=== PATIENT | male | born 2000 | race Caucasian/White ===

== ENCOUNTER 2023-09-13 14:22 | Outpatient (AMB) | payer BC, MEDICAID, SELFPAY ==
--- NOTE | 2023-09-13 14:38 | A.OFFPC_ITS ---
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 Will order labs. Pt has a hx of autism. He is accompanied by his mother today. Pt reports increased allergy symptoms. Recommended OTC cetirizine twice a day. Pt reports increased anxiety. He is positive on the PHQ-9 and PEGGY-7. He is interested in seeing a therapist. Will have team speak with pt. Denies any SI and HI. Pt has cerumen bilat, recommended ear wax removal kit. [facility] Medical History (Updated 09/13/23 @ 15:32 by Ney Vaca, [facility]) Autism Pervasive developmental disorder Social History Housing: House Patient Tobacco Use Status: Never used Tobacco Current occupational status: unemployed Current occupational exposures/hazards: No Cognitive needs: No Hearing needs: No Vision needs: Yes Questionnaire PHQ-9 Over the last 2 weeks, how often have you been bothered by any of the following problems? 1. Little interest or pleasure in doing things: several days 2. Feeling down, depressed, or hopeless: several days 3. Trouble falling or staying asleep, or sleeping too much: nearly every day 4. Feeling tired or having little energy: not at all 5. Poor appetite or overeating: several days 6. Feeling bad about yourself - or that you are a failure or have let yourself or your family down: several days 7. Trouble concentrating on things, such as reading the newspaper or watching television: more than half the days 8. Moving or speaking so slowly that other people could have noticed. Or the opposite - being so fidgety or restless that you have been moving around a lot more than usual: more than half the days 9. Thoughts that you would be better off or of hurting yourself in some way: not at all Total score: 11 Depression Screening Interpretation: Positive (having pratibha (BH) see pt) Depression Screening Follow-up: Existing condition Depression Screening Done: Yes 72483 - PHQ-9 Billing: Yes Source: Developed by Drs. Bro Henriquez, Jazmin Fairchild, Johnny Beckett and colleagues, with an educational rocío from [employer]. Thrive Questionnaire Date Thrive assessed: 09/13/23 I am a: Patient What is your living situation today?: I have a steady place to live Within the past 12 months, did the food you bought not last and you didn't have the money to get more?: Sometimes True Within the past 12 months, did you worry whether your food would run out before you got money to buy more?: Sometimes True Do you have trouble paying for medicines?: Yes Do you have trouble getting transportation to medical appointments?: No Do you have trouble paying your heating and electricity bill?: Yes Do you have trouble taking care of your child, family member or friend?: No Do you have trouble with day-to-day activities such as bathing, preparing meals, shopping, managing finances, etc.?: No Are you currently unemployed and looking for a job?: Yes Are you interested in more education?: No Please select the resources that you would like help with: Job search/training Currently or been in a relationship where the following occur: No concerns reported THRIVE Score: 3 AUDIT C Alcohol Use Questionnaire (AUDIT-C) 1. How often do you have a drink containing alcohol?: Never 3. How often do you have six or more drinks on one occasion?: Never Total Score: 0 Score Reviewed/Action Taken: No PEGGY-7 AMB Questionnaire PEGGY-7 Date PEGGY - 7 assessed: 09/13/23 Feeling nervous, anxious, or on edge: 1 = Several days Not being able to stop or control worryin = More than half the days Worrying too much about different things: 3 = Nearly every day Trouble relaxin = Several days Being so restless that it is hard to sit still: 3 = Nearly every day Becoming easily annoyed or irritable: 2 = More than half the days Feeling afraid as if something awful might happen: 2 = More than half the days Total PEGGY-7 score (0-4 normal; 5-9 mild; 10-14 moderate; 15-21 severe): 14 Source: Developed by Drs. Bro Henriquez, Jazmin Fairchild, Johnny Beckett and colleagues, with an educational rocío from [employer]. PEGGY-7 Assessment Billing PEGGY-7 Assessment Tool: PEGGY-7 Assessment 27067 Review of Systems Const Denies chills and Denies fever(s) Eyes Denies blurry vision ENT Denies vertigo, Denies dizziness and Denies sore throat Card Denies chest pain at rest, Denies chest pain with activity, Denies diaphoresis, Denies dyspnea and Denies dyspnea on exertion Resp Denies cough, Denies dyspnea, Denies dyspnea on exertion and Denies wheezing GI Denies abdominal pain, Denies melena, Denies hematochezia, Denies constipation, Denies diarrhea and Denies loose stools Denies hematuria Musc Denies numbness and Denies tingling Skin/Breast Denies lesions Neuro Denies vertigo, Denies dizziness, Denies numbness and Denies tingling Psych Denies anxiety, Denies depression, Denies homicidal ideation, Denies suicidal ideation and Denies other (substance abuse) Aller/Immun Denies wheezing Physical exam (Primary Care) Vital Signs: Last Vital Signs Pulse 97 09/13/23 14:39 BP 120/80 09/13/23 14:39 Pulse Ox 97 09/13/23 14:39 Oxygen Delivery Method Room Air 09/13/23 14:39 BMI result Body Mass Index 23.2 Tobacco/Smoking Status: Tobacco use Status Tobacco use date assessed 09/13/23 09/13/23 14:45 Patient Tobacco Use Status Never used Tobacco 09/13/23 14:45 PHQ-9: PHQ-9 Score PHQ-9: Total score 11 09/13/23 14:49 Depression Screening Interpretation: Positive (having pratibha (TOMI) see pt) Depression Screening Follow-up: Existing condition Thrive Assessment: Date of Thrive Assessment Date Thrive assessed 09/13/23 09/13/23 14:49 Currently or been in a relationship where the following occur: No concerns reported Const General: cooperative Nutritional Appearance: well nourished Orientation/consciousness: patient oriented x3 HENMT Other: cerumen noted bilat Head: Yes normal to inspection, Yes normocephalic and Yes atraumatic Eyes General: appearance normal, both eyes and all related structures Alignment and Position: alignment normal and position normal Neck Neck: Yes normal visual inspection and Yes no lymphadenopathy Thyroid: Thyroid normal Resp Effort & Inspection: normal respiratory effort Auscultation: clear to auscultation bilaterally Cardio Rate: regular rate Rhythm: regular rhythm Heart sounds: S1 normal heart sound present, S2 normal heart sound present and no murmurs GI Palpation (GI): Soft to palpation and nontender Auscultation: normal bowel sounds Male General Exam: Yes normal external exam Penis: normal penis Scrotum: scrotum normal, testes descended bilaterally and no inguinal hernias Testes: no testicular mass Skin Rashes: no rashes Neuro General: patient oriented x3, moves all extremities, no focal motor deficits and deep tendon reflexes 2+ bilaterally Romberg Test: Negative Psych Appearance: grossly normal Mental Status: mental status grossly normal Speech and movement: Normal speech and movement present Affect: normal affect Attitude: cooperative Thought process: Normal thought process present Thought content: Normal thought content present Insight: Good insight present (Psych) Judgement: Good judgement present (Psych) Assessment and Plan Assessment & Plan (1) Physical exam: Code(s): Z00.00 - Encounter for general adult medical examination without abnormal findings Plan: Labs ordered (2) Impacted cerumen of both ears: Code(s): H61.23 - Impacted cerumen, bilateral Plan: Recommended ear wax removal kit (3) Multiple allergies: Code(s): Z88.9 - Allergy status to unspecified drugs, medicaments and biological substances Plan: cetirizine 20mg daily (4) Anxiety with depression: Code(s): F41.8 - Other specified anxiety disorders Plan The patient agreed to the use of a biomedical repair technician for this encounter. Scribed for RIGOBERTO Conrad by Mely Rodriguez biomedical repair technician, on 09/13/2023 at 15:00 EST. Orders: Orders TSH reflex Free T4 Today Z00.00 - Encounter for general adult medical examination without abnormal findings Lipid Panel Today Z00.00 - Encounter for general adult medical examination without abnormal findings Complete Blood Count Auto Diff Today Z00.00 - Encounter for general adult medical examination without abnormal findings Comprehensive [place]. Panel Fast Today Z00.00 - Encounter for general adult medical examination without abnormal findings UA CC w/rflx Micro + Cult Today Z00.00 - Encounter for general adult medical examination without abnormal findings Coding Level of Care Code New Pt Level 3 (57781) New Pt Prev Care 18-39yr(29542 Diagnoses Physical exam Z00.00 Impacted cerumen of both ears H61.23 Multiple allergies Z88.9 Anxiety with depression F41.8 Additional Codes PEGGY-7 Assessment Billing - PEGGY-7 Assessment Tool: PEGGY-7 Assessment 49762 ([id number])
[2023-09-13 14:39] VITALS: BP 120/80; PULSE 97; O2SAT 97; BMI 23.2
== END 2023-09-13 17:20 | disposition home or self-care (01) ==
LOC: HO.HMGC 14:22
PROVIDERS: PCP Nurse Practitioner Family; Visit Provider Nurse Practitioner Family
DX: Z00.00 Encounter for general adult medical examination without abnormal findings (principal); H61.23 Impacted cerumen, bilateral; F41.8 Other specified anxiety disorders; Z88.9 Allergy status to unspecified drugs, medicaments and biological substances
CPT/HCPCS: 99203; 99385

== ENCOUNTER 2023-12-20 08:30 | Outpatient (REF) | payer BC, MEDICAID, SELFPAY ==
[2023-12-20 10:14] LABS: MANUAL DIFF FLAG NO
[2023-12-20 10:21] LABS: Basophils Percent Auto 0.7 % (0-2); Eosinophils Absolute Auto 0.2 X10*3/uL (0.0-0.4); Eosinophils Percent Auto 4.3 % (0-4); Hematocrit 47.6 % (42.0-52.0); Hemoglobin 16.6 g/dl (14.0-18.0); Imm Gran Abs Auto 0.01 X10*3/uL (0.00-0.03); Imm Gran Pct Auto 0.2 % (0.0-0.4); Lymphocytes Absolute Auto 2.2 X10*3/uL (1.2-4.9); Lymphocytes Percent Auto 39.4 % (20-40); Mean Corpuscular HGB Conc 34.9 g/dl (31.0-36.0); Mean Corpuscular Hemoglobin 30.4 pg (27.0-33.0); Mean Corpuscular Volume 87.2 fL (80.0-98.0); Mean Platelet Volume 9.5 fL (9.4-12.4); Monocytes Absolute Auto 0.6 X10*3/uL (0.1-1.2); Monocytes Percent Auto 10.8 % (2-11); Neutrophils Absolute Auto 2.5 x10*3/uL (2.0-8.3); Neutrophils Percent Auto 44.6 % (45-73); Platelet Count 261 X10*3/uL (160-400); Red Blood Count 5.46 X10*6/uL (4.60-5.80); Red Cell Distribution Width 12.6 % (11.0-16.0); White Blood Count 5.6 X10*3/uL (4.8-10.8)
[2023-12-20 10:42] LABS: Appearance Urine Clear; Color Urine Dark Yellow; Glucose Urine UA Negative (Negative); Leukocyte Esterase Urine Negative (Negative); Nitrite Urine Negative (Negative); Specific Gravity - Urine >= 1.030 (1.005-1.025); Urine Blood Negative (Negative); Urine Ketones Negative (Negative); Urine Protein Trace mg/dL (Neg-Trace)
[2023-12-20 10:57] LABS: Alanine Aminotransferase 73 U/L (0-40); Albumin Level 4.4 g/dL (3.5-5.0); Alkaline Phosphatase 76 U/L (39-117); Anion Gap 11 (12-20); Aspartate Amino Transferase 34 U/L (5-37); Bilirubin Total 0.7 mg/dL (0.0-1.0); Blood Urea Nitrogen 9 mg/dL (9-16); Calcium 9.5 mg/dL (8.4-10.2); Carbon Dioxide 28 mmol/L (22-29); Chloride 106 mmol/L (96-108); Cholesterol 186 mg/dL (<200); Estimated Glomerular Filt Rate > 60; Glucose Fasting 85 mg/dL (60-99); HDL Cholesterol 39 mg/dL (>40); LDL Cholesterol Calculated 120 mg/dL (<100); Potassium 3.7 mmol/L (3.3-5.1); Sodium 141 mmol/L (135-145); Total Protein 7.3 g/dL (6.5-8.0); Triglycerides 139 mg/dL (<150)
[2023-12-20 11:20] LABS: TSH reflex Free T4 1.93 uIU/mL (0.32-4.0)
== END 2023-12-20 08:31 | disposition home or self-care (01) ==
LOC: HO.HMGCLDS 08:30
PROVIDERS: PCP Nurse Practitioner Family; Visit Provider Nurse Practitioner Family
DX: Z00.00 Encounter for general adult medical examination without abnormal findings (principal)
CPT/HCPCS: 36415; 80053; 80061; 81003; 84443; 85025

== ENCOUNTER 2024-01-04 14:12 | Outpatient (REF) | payer BC, MEDICAID, SELFPAY ==
[2024-01-05 08:29] LABS: HBc Num1 0.12 S/CO (0.00-0.79); HBsAGNum1 0.35 S/CO (0.00-0.99); Hepatitis B Core Antibody Nonreactive (Nonreactive); Hepatitis B Surface Antigen Negative (Negative); ~HepC Num1 0.26 S/CO (0.00-0.79); ~Hepatitis A Antibody IgM Nonreactive (Nonreactive); ~Hepatitis B Surface Antibody NONREACTIVE (Nonreactive); ~Hepatitis C Antibody Nonreactive (Nonreactive)
== END 2024-01-04 14:13 | disposition home or self-care (01) ==
LOC: HO.US 14:12
PROVIDERS: PCP Nurse Practitioner Family; Visit Provider Nurse Practitioner Family
DX: R74.8 Abnormal levels of other serum enzymes (principal)
CPT/HCPCS: 36415; 76700; 86704; 86706; 86709; 86803; 87340

== ENCOUNTER 2024-04-23 13:14 | Outpatient (AMB) | payer BC, MEDICAID, SELFPAY ==
[2024-04-23 13:24] VITALS: BP 122/80; PULSE 90; TEMP 36.6; O2SAT 98; BMI 25.2
--- NOTE | 2024-04-23 13:24 | A.OFFPC_ITS ---
Vital Signs 04/23/24 13:24 Height 6 ft 3 in Weight 202 lb BMI 25.2 BP 122/80 Blood Pressure Location Lt brachial Position Sitting Pulse 90 Pulse Source Pulse Oximeter Temp 97.9 F Temp Source Oral Pulse Oximetry (%) 98 Oxygen Delivery Method Room Air Intake Visit Reasons: Anxiety Allergies No Known Allergies Allergy (Verified 04/23/24 13:56) Medication List - Last Reconciled 04/23/24 by RIGOBERTO Segura No Known Home Meds Tobacco use date assessed: 04/23/24 Dental Screening Dental Screen Date: 04/23/24 Did you have a dental visit in the last 12 months?: Yes Did you have a dental problem in the last 6 months where you did not have access to dental care?: No Was dental information given to patient?: Patient has dentist HPI Anxiety HPI Details Chief Complaint Follow-up for anxiety. History of Present Illness The patient is a 23-year-old male presenting with a follow-up for anxiety management. He was previously identified as having anxiety and was referred to a therapist, however, it has been reported that the therapist has yet to contact them. The patient's anxiety seems to be managed as they report he is doing fair at this time. There were no discussions regarding exacerbating factors or specific interventions attempted beyond the referral for therapy. Pt denies any SI or HI Social History - Patient is supported by his family, sp ecifically his mother, who is accompanying him during the visit. - Developmental history includes Autism Spectrum Disorder. Health Maintenance Review of Systems Physical Exam General: Cooperative, healthy appearing, comfortable, no acute distress and well developed Orientation: Patient oriented x3 Limitations: autism Head: Normal to inspection Ears: Hearing grossly normal bilaterally Nose: Normal external nose present Face and sinus: Normal facial exam Eyes: Appearance normal, both eyes and all related structures Neck: Normal visual inspection and Yes full ROM Respiratory: Normal respiratory effort and able to speak in complete sentences. Clear to auscultation bilaterally Cardiovascular: Regular rate and rhythm. Normal S1 and S2 GI: Normal to inspection. Soft to palpation and nontender Skin: No rashes or lesions noted Neuro: Patient oriented x3 Extremities: Normal to inspection Results Plan - I will ensure the referral to the ther apist is followed up, providing the patient and family with the necessary contact information to set up a session. - Remain in contact with behavioral heal th services to ensure therapeutic interventions are initiated. - Follow-up for comprehensive physical e xamination scheduled in about 6 months. Discussion Notes I discussed with the patient's mother that the referral for therapy has been placed, and I provided the contact details for the behavioral health resources. They were advised to make contact for a session upon returning home. I informed them that I remain available for assistance should they encounter any difficulties in securing the therapy session. I advised a return visit in approximately 6 months for a full physical examination. Patient Instructions - Contact the therapist as soon as gadiel gutierrez using the provided details to arra nge therapy sessions. - Call the clinic if there are any issue s scheduling the therapy. - Plan to return in 6 months for a full physical examination. [facility] Medical History Autism Pervasive developmental disorder Surgical History No pertinent past surgical history Social History Housing: [place] Patient Tobacco Use Status: Never used Tobacco Current occupational status: unemployed Current occupational exposures/hazards: No Cognitive needs: No Hearing needs: No Vision needs: Yes Questionnaire PHQ-9 Over the last 2 weeks, how often have you been bothered by any of the following problems? 1. Little interest or pleasure in doing things: several days 2. Feeling down, depressed, or hopeless: not at all 3. Trouble falling or staying asleep, or sleeping too much: several days 4. Feeling tired or having little energy: more than half the days 5. Poor appetite or overeating: not at all 6. Feeling bad about yourself - or that you are a failure or have let yourself or your family down: not at all 7. Trouble concentrating on things, such as reading the newspaper or watching television: several days 8. Moving or speaking so slowly that other people could have noticed. Or the opposite - being so fidgety or restless that you have been moving around a lot more than usual: several days 9. Thoughts that you would be better off or of hurting yourself in some way: not at all Total score: 6 Depression Screening Interpretation: Negative Depression Screening Done: Yes 46113 - PHQ-9 Billing: Yes Source: Developed by Drs. Bro Henriquez, Jazmin Fairchild, Johnny Beckett and colleagues, with an educational rocío from [employer]. Thrive Questionnaire Date Thrive assessed: 04/23/24 I am a: Patient What is your living situation today?: I have a steady place to live Within the past 12 months, did the food you bought not last and you didn't have the money to get more?: Sometimes True Within the past 12 months, did you worry whether your food would run out before you got money to buy more?: Never true Do you have trouble paying for medicines?: I choose not to answer this question Do you have trouble getting transportation to medical appointments?: No Do you have trouble paying your heating and electricity bill?: No Do you have trouble taking care of your child, family member or friend?: I choose not to answer this question Do you have trouble with day-to-day activities such as bathing, preparing meals, shopping, managing finances, etc.?: No Are you currently unemployed and looking for a job?: No Are you interested in more education?: No Please select the resources that you would like help with: None Currently or been in a relationship where the following occur: I choose not to answer THRIVE Score: 1 AUDIT C Alcohol Use Questionnaire (AUDIT-C) 1. How often do you have a drink containing alcohol?: Never 2. How many drinks containing alcohol do you have on a typical day when you are drinking?: 1 or 2 3. How often do you have six or more drinks on one occasion?: Never Total Score: 0 Score Reviewed/Action Taken: Yes PEGGY-7 AMB Questionnaire PEGGY-7 Date PEGGY - 7 assessed: 04/23/24 Feeling nervous, anxious, or on edge: 1 = Several days Not being able to stop or control worryin = Several days Worrying too much about different things: 1 = Several days Trouble relaxin = Not at all Being so restless that it is hard to sit still: 0 = Not at all Becoming easily annoyed or irritable: 1 = Several days Feeling afraid as if something awful might happen: 1 = Several days Total PEGGY-7 score (0-4 normal; 5-9 mild; 10-14 moderate; 15-21 severe): 5 Source: Developed by Drs. Bro Henriquez, Jazmin Fairchild, Johnny Beckett and colleagues, with an educational rocío from [employer]. PEGGY-7 Assessment Billing PEGGY-7 Assessment Tool: PEGGY-7 Assessment 26226 Physical exam (Primary Care) Vital Signs: Last Vital Signs Temp 97.9 F 04/23/24 13:24 Pulse 90 04/23/24 13:24 BP 122/80 04/23/24 13:24 Pulse Ox 98 04/23/24 13:24 Oxygen Delivery Method Room Air 04/23/24 13:24 BMI result Body Mass Index 25.2 Tobacco/Smoking Status: Tobacco use Status Tobacco use date assessed 04/23/24 04/23/24 13:29 Patient Tobacco Use Status Never used Tobacco 04/23/24 13:29 PHQ-9: PHQ-9 Score PHQ-9: Total score 6 04/23/24 13:29 Depression Screening Interpretation: Negative Thrive Assessment: Date of Thrive Assessment Date Thrive assessed 04/23/24 04/23/24 13:29 Currently or been in a relationship where the following occur: I choose not to answer Coding Level of Care Code Est Pt Level 3 (71909) Diagnoses Anxiety with depression F41.8 Additional Codes PEGGY-7 Assessment Billing - PEGGY-7 Assessment Tool: PEGGY-7 Assessment 91696 ([id number]) PHQ-9 - 28395 - PHQ-9 Billing: Yes ([id number]) Assessment & Plan Assessment & Plan (1) Anxiety with depression: Code(s): F41.8 - Other specified anxiety disorders Category: Medical Plan .
--- OUTSIDE RECORDS SUMMARY | 2024-04-23 14:11 | XMS_ITS | Encounter Summary ---
Author Organization [facility] Address [address] [place] [id number] Phone Care Team Providers Care Carton Marker Machine Name Role Phone Silvio Ness MD Primary Care Provider [phone] Encounter Details Date Type Department Care Team (Late st Contact Info) Description 06/10/2016 Documentation [facility] Family Medicine [address] [place] [address] Family Medicine, Physician [address] [place], [place] [phone] Social History Tobacco Use Types Packs/Day Years Used Date Smoking Tobacco: Never Comments:Never smoker Sex and Gender Information Value Date Recorded Sex Assigned at Male 01/01/2021 11:42 AM EDT Legal Sex Male 5:02 PM EDT Gender Identity Male 01/01/2021 11:42 AM EDT Sexual Orientation Don't know 02/09/2023 4: 35 PM EST documented as of this encounter Plan of Treatment Not on file documented as of this encounter Visit Diagnoses Not on filedocumented in this encounter Care Teams Carton Marker Machine Relationship Specialty Start Date End Date Silvio Ness MD [address] [place] [address] [place] [address] PCP - General 10/14/16 01/03/23 documented as of this encounter
--- OUTSIDE RECORDS SUMMARY | 2024-04-23 14:11 | XMS_ITS | Encounter Summary ---
Author Organization [facility] Address [address] [place] [address] Phone Care Team Providers Care Ob/Gyn Doctor Name Role Phone Silvio Ness MD Primary Care Provider [phone] Encounter Details Date Type Department Care Team (Late st Contact Info) Description 04/23/2015 Documentation [facility] [place] Medicine [address] [place] [address] Family Medicine, Physician [address] [place], [place] [phone] Social History Tobacco Use Types Packs/Day Years Used Date Smoking Tobacco: Never Assessed Sex and Gender Information Value Date Recorded Sex Assigned at Male 01/01/2021 11:42 AM EDT Legal Sex Male 5:02 PM EDT Gender Identity Male 01/01/2021 11:42 AM EDT Sexual Orientation Don't know 02/09/2023 4 :35 PM EST documented as of this encounter Plan of Treatment Not on file documented as of this encounter Visit Diagnoses Not on filedocumented in this encounter Care Teams Ob/Gyn Doctor Relationship Specialty Start Date End Date Silvio Ness MD [address] [place] [address] [place] [address] PCP - General 10/14/16 01/03/23 documented as of this encounter
--- OUTSIDE RECORDS SUMMARY | 2024-04-23 14:11 | XMS_ITS | Encounter Summary ---
Author Organization [facility] Address [address] [place] [address] Phone Care Team Providers Care County Bailiff Name Role Phone Silvio Ness MD Primary Care Provider [phone] Encounter Details Date Type Department Care Team (Late st Contact Info) Description 04/10/2014 Documentation [facility] [place] [facility] [address] [place] [address] Family Medicine, Physician [address] [place], [place] [phone] Social History Tobacco Use Types Packs/Day Years [...] on filedocumented in this encounter Care Teams County Bailiff Relationship Specialty Start Date End Date Silvio Ness MD [address] [place] [address] [place] [address] PCP - General 10/14/16 01/03/23 documented as of this encounter
--- OUTSIDE RECORDS SUMMARY | 2024-04-23 14:11 | XMS_ITS | Encounter Summary ---
Author Organization [facility] Address [address] [place] [address] Phone Care Team Providers Care Booth Cashier Name Role Phone Silvio Ness MD Primary Care Provider [phone] Encounter Details Date Type Department Care Team (Late st Contact Info) Description 01/12/2012 Documentation [facility] Family Medicine [address] [place] [address] Family Medicine, Physician [address] [place], [place] [phone] Social History Tobacco Use Types Packs/Day Years [...] on filedocumented in this encounter Care Teams Booth Cashier Relationship Specialty Start Date End Date Silvio Ness MD [address] [place] [address] [place] [address] PCP - General 10/14/16 01/03/23 documented as of this encounter
--- OUTSIDE RECORDS SUMMARY | 2024-04-23 14:11 | XMS_ITS | Encounter Summary ---
Author Organization [facility] Address [address] [place] [address] Phone Care Team Providers Care Picker Box Operator Name Role Phone Silvio Ness MD Primary Care Provider [phone] Encounter Details Date Type Department Care Team (Late st Contact Info) Description 04/10/2014 Documentation [facility] Family Medicine [address] [place] [address] Family Medicine, Physician [address] [place], [place] [phone] Social History Tobacco Use Types Packs/Day Years [...] on filedocumented in this encounter Care Teams Picker Box Operator Relationship Specialty Start Date End Date Silvio Ness MD [address] [place] [address] [place] [address] PCP - General 10/14/16 01/03/23 documented as of this encounter
--- OUTSIDE RECORDS SUMMARY | 2024-04-23 14:11 | XMS_ITS | Encounter Summary ---
Author Organization [facility] Address [address] [place] [address] Phone Care Team Providers Care Hair Worker Name Role Phone Silvio Ness MD Primary Care Provider [phone] Encounter Details Date Type Department Care Team (Late st Contact Info) Description 04/24/2015 Documentation [facility] [place] Family Medicine [address] [place] [address] Family Medicine, Physician [address] [place], [place] [phone] Social History Tobacco Use Types Packs/Day Years [...] on filedocumented in this encounter Care Teams Hair Worker Relationship Specialty Start Date End Date Silvio Ness MD [address] [place] [address] [place] [address] PCP - General 10/14/16 01/03/23 documented as of this encounter
--- OUTSIDE RECORDS SUMMARY | 2024-04-23 14:11 | XMS_ITS | Encounter Summary ---
Author Organization [facility] Address [address] [place] [address] Phone Care Team Providers Care Bailiff Name Role Phone Silvio Ness MD Primary Care Provider [phone] Encounter Details Date Type Department Care Team (Late st Contact Info) Description 12/30/2010 Documentation [facility] Family Medicine [address] [place] [address] Family Medicine, Physician [address] [place], [place] [id number] Social History Tobacco Use Types Packs/Day Years [...] on filedocumented in this encounter Care Teams Bailiff Relationship Specialty Start Date End Date Silvio Ness MD [address] [place] [address] [place] [address] PCP - General 10/14/16 01/03/23 documented as of this encounter
--- OUTSIDE RECORDS SUMMARY | 2024-04-23 14:11 | XMS_ITS | Encounter Summary ---
Author Organization [facility] Address [address] [place] [address] Phone Care Team Providers Care Sewing Trimmer Name Role Phone Silvio Ness MD Primary Care Provider [phone] Encounter Details Date Type Department Care Team (Late st Contact Info) Description 05/11/2012 Documentation [facility] [place] [address] [place] [address] Family Medicine, Physician [address] [place], [place] [phone] Social History Tobacco Use Types Packs/Day Years [...] on filedocumented in this encounter Care Teams Sewing Trimmer Relationship Specialty Start Date End Date Silvio Ness MD [address] [place] [address] [place] [address] PCP - General 10/14/16 01/03/23 documented as of this encounter
--- OUTSIDE RECORDS SUMMARY | 2024-04-23 14:11 | XMS_ITS | Encounter Summary ---
Author Organization [facility] Address [address] [place] [address] Phone Care Team Providers Care Solutions Executive Security Name Role Phone Silvio Ness MD Primary Care Provider [phone] Encounter Details Date Type Department Care Team (Late st Contact Info) Description 10/20/2016 Conversion Encounter [facility] [place] [address] [place] [address] Social History Tobacco Use Types Packs/Day Years [...] on filedocumented in this encounter Care Teams Solutions Executive Security Relationship Specialty Start Date End Date Silvio Ness MD [address] [place] [address] PCP - General 10/14/16 01/03/23 documented as of this encounter
--- OUTSIDE RECORDS SUMMARY | 2024-04-23 14:11 | XMS_ITS | Encounter Summary ---
Author Organization [facility] Address [address] [place] [address] Phone Care Team Providers Care Courier Driver Name Role Phone Silvio Ness MD Primary Care Provider [phone] Encounter Details Date Type Department Care Team (Late st Contact Info) Description 01/17/2013 Documentation [facility] [place] Family Medicine [address] [place] [address] Family Medicine, Physician [address] [place], [place] [phone] Social History Tobacco Use Types Packs/Day Years [...] on filedocumented in this encounter Care Teams Courier Driver Relationship Specialty Start Date End Date Silvio Ness MD [address] [place] [address] [place] [address] PCP - General 10/14/16 01/03/23 documented as of this encounter
--- OUTSIDE RECORDS SUMMARY | 2024-04-23 14:11 | XMS_ITS | Encounter Summary ---
Author Organization [facility] Address [address] [place] [address] Phone Care Team Providers Care Compliance Intern Name Role Phone Silvio Ness MD Primary Care Provider [phone] Encounter Details Date Type Department Care Team (Late st Contact Info) Description 01/17/2013 Documentation [facility] [place] [address] [place] [address] Family Medicine, Physician [address] [place], [place] [phone] Social History Tobacco Use Types Packs/Day Years [...] on filedocumented in this encounter Care Teams Compliance Intern Relationship Specialty Start Date End Date Silvio Ness MD [address] [place] [address] [place] [address] PCP - General 10/14/16 01/03/23 documented as of this encounter
--- OUTSIDE RECORDS SUMMARY | 2024-04-23 14:11 | XMS_ITS | Encounter Summary ---
Author Organization [facility] Address [address] [place] [address] Phone Care Team Providers Care Instrument Sterilizer Name Role Phone Silvio Ness MD Primary Care Provider [phone] Encounter Details Date Type Department Care Team (Late st Contact Info) Description 01/12/2012 Documentation [facility] [place] Family Medicine [address] [place] [address] Family Medicine, Physician [address] [place], [place] [phone] Social History Tobacco Use Types Packs/Day Years [...] on filedocumented in this encounter Care Teams Instrument Sterilizer Relationship Specialty Start Date End Date Silvio Ness MD [address] [place] [address] [place] [address] PCP - General 10/14/16 01/03/23 documented as of this encounter
--- OUTSIDE RECORDS SUMMARY | 2024-04-23 14:11 | XMS_ITS | Encounter Summary ---
Author Organization [facility] Address [address] [place] [address] Phone Care Team Providers Care Steel Estimator Name Role Phone Silvio Ness MD Primary Care Provider [phone] Encounter Details Date Type Department Care Team (Late st Contact Info) Description 01/17/2013 Documentation [facility] [place] [address] [place] [address] Family Medicine, Physician [address] [place], [place] [phone] Social History Tobacco Use Types Packs/Day Years [...] on filedocumented in this encounter Care Teams Steel Estimator Relationship Specialty Start Date End Date Silvio Ness MD [address] [place] [address] [place] [address] PCP - General 10/14/16 01/03/23 documented as of this encounter
--- OUTSIDE RECORDS SUMMARY | 2024-04-23 14:11 | XMS_ITS | Encounter Summary ---
Author Organization [facility] Address [address] [place] [address] Phone Care Team Providers Care Correctional Supervisor Lieutenant Name Role Phone Silvio Ness MD Primary Care Provider [phone] Encounter Details Date Type Department Care Team (Late st Contact Info) Description 06/10/2016 Documentation [facility] [place] [address] [place] [address] Family Medicine, Physician [address] [place], [place] [phone] Social History Tobacco Use Types Packs/Day Years [...] on filedocumented in this encounter Care Teams Correctional Supervisor Lieutenant Relationship Specialty Start Date End Date Silvio Ness MD [address] [place] [address] [place] [address] PCP - General 10/14/16 01/03/23 documented as of this encounter
--- OUTSIDE RECORDS SUMMARY | 2024-04-23 14:11 | XMS_ITS | Encounter Summary ---
Author Organization [facility] Address [address] [place] [address] Phone Care Team Providers Care Lease Administration Supervisor Name Role Phone Silvio Ness MD Primary Care Provider [phone] Encounter Details Date Type Department Care Team (Late st Contact Info) Description 01/12/2012 Documentation [facility] [place] [address] [place] [address] Family Medicine, Physician [address] [place], [place] [phone] Social History Tobacco Use Types Packs/Day Years [...] on filedocumented in this encounter Care Teams Lease Administration Supervisor Relationship Specialty Start Date End Date Silvio Ness MD [address] [place] [address] [place] [address] PCP - General 10/14/16 01/03/23 documented as of this encounter
--- OUTSIDE RECORDS SUMMARY | 2024-04-23 14:11 | XMS_ITS | Encounter Summary ---
Author Organization [facility] Address [address] [place] [address] Phone Care Team Providers Care Repair Weaver Name Role Phone Silvio Ness MD Primary Care Provider [phone] Encounter Details Date Type Department Care Team (Late st Contact Info) Description 04/24/2015 [place] [facility] [place] [address] [place] [address] Family Medicine, Physician [address] [place], [place] [phone] Social History Tobacco Use Types Packs/Day Years [...] on filedocumented in this encounter Care Teams Repair Weaver Relationship Specialty Start Date End Date Silvio Ness MD [address] [place] [address] [place] [address] PCP - General 10/14/16 01/03/23 documented as of this encounter
--- OUTSIDE RECORDS SUMMARY | 2024-04-23 14:11 | XMS_ITS | Clinical Summary ---
Author Organization [facility] Address [address] [place] [address] Phone Care Team Providers Care Trash Collector Supervisor Name Role Phone Unavailable Primary Care Provider Unavailabl e Allergies No known active allergies Medications No known medications Active Problems Problem Noted Date Diagnosed Date Human papilloma virus (HPV) vaccination declined 01/01/2021 Overview (01/01/2021): 2020 COVID-19 vaccine dose declined 01/01/2021 Myopia of both eyes 09/26/2018 PDD (pervasive developmental disorder) 9 Immunizations Immunization Administration Dates Next Due DTaP 5 12/05/2005, 4,06/12/2002,04/05,02/11/2002 H1N1 12/24/2008 Hep A, ped/adol 04/22/2015,04/09/2014 Hep B, ped/adol 09/11/2002,06/12/2002,2001 Hib (PRP-T) 06/06/2003, 3,04/05/2002,02/11 IPV 12/05/2005, 3,04/05/2002,02/11 Influenza, injectable, quadrivalent 04/09/2014 Influenza, injectable, quadr ivalent, preservative free 01/01/2021,11/07/2019 Influenza, injectable, trivalent 008,12/05/2005,02/04/2003,01/01 Influenza, intranasal, quadrivalent 04/22/2015,1 03/18/2012 Influenza, intranasal, trivalent 01/11/2012,102 09/2010,01/20/2010 MMR 12/05/2005,01/01/2003 Meningococcal Conj (Menactra) MCV4P 09/26/2018,0 04/09/2014 Pneumococcal Conjugate 01/16/2004,2002,04/05/2002,02/11 Tdap 04/09/2014 Unknown Vaccine 01/01/2003 Varicella 12/06/2006,01/01/2003 Family History Medical History Relation Name Comments Speech disorder Brother HIGINIO Heart disease (Premature) Father kristin Hyperlipidemia Father kristin Diabetes Mother tod Other Mother tod ADD / ADHD Other Cervical cancer Other Diabetes Other Heart disease (Premature) Other Hyperlipidemia Other Obesity Other Skin cancer Other Stroke Other Relation Name Status Comments Brother CJ Alive Brother: Alive and well,speech delay Father kristin Alive Father: Hyperli pidemia Half-Sister Danyell Alive Sister: Alive a nd well Mother tod Alive Mental Issues Other Family history of cancer, skin, Family history of ADD/ADHD, Family history of Cancer, cervical, Family history of Obesity, Family history of Diabetes mellitus, Family history of *CVA/Stroke, Family history of *Dental caries, Family history of *Heart Disease Social History Tobacco Use Types Packs/Day Years Used Date Smoking Tobacco: Never Smokeless Tobacco: Never Tobacco Cessation:Counseling Given: Yes Comments:Never smoker Alcohol Use Standard Drinks/Week Comments Never 0 (1 standard drink = 0.6 oz pur e alcohol) Hunger/Food Answer Date Recorded In the last 12 months, did y ou or your family ever eat less than you felt you should because there wasn't enough money for food? No 01/01/2021 Stable Housing Answer Date Recorded Are you worried that in the next 2 months you may not have stable housing? No 01/01/2021 Transportation Concerns Answer Date Rec orded In the last 12 months, have you or your family ever had to go without healthcare because you didn't have a way to get there? No 01/01/2021 Hazards in Home Answer Date Recorded Think about the place you li ve. Do you have problems with any of the following? Pests (mice or roaches), mold, no/not working smoke detectors, water leaks, no window guards. No 2020 Financing Utilities Answer Date Recorde d In the last 12 months, has t he electric, gas, oil, or water company threatened to shut off your services in your home? No 01/01/2021 Safety at Home Answer Date Recorded Are you or your family worried about feeling saf e in your home? No 01/01/2021 Outside Support Answer Date Recorded Do you feel that you need mo re support from other people or programs to help you care for yourself or your family? No 01/01/2021 Understanding Health Concerns Answer Da te Recorded Do you need help understandi ng your or your child's healthcare needs (diagnosis, medications, plan, etc.)? No 01/01/2021 Financing Health Concerns Answer Date R ecorded In the last 12 months, was t here a time when your child needed to see a doctor or get medications or supplies but could not because of cost? No 01/01/2021 Missing School or Work Answer Date Flo rded Did you or your child miss s chool or work because of a health problem that could have been avoided? No 01/01/2021 Sex and Gender Information Value Date Recorded Sex Assigned at Male 01/01/2021 11:42 AM EDT Legal Sex Male 5:02 PM EDT Gender Identity Male 01/01/2021 11:42 AM EDT Sexual Orientation Don't know 02/09/2023 4: 35 PM EST Last Filed Vital Signs Vital Sign Reading Time Taken Comments Blood Pressure 123/73 01/01/2021 11:13 AM EDT Pulse 80 01/01/2021 11:13 AM EDT Temperature 36.5 ??C (97.7 ??F) 12/29/2021 8:56 AM ED T Respiratory Rate - - Oxygen Saturation - - Inhaled Oxygen Concentration - - Weight 86.2 kg (190 lb) 12/29/2021 8:56 AM EDT Height 189.2 cm (6' 2.5 ) 01/01/2021 11:13 AM ED T Body Mass Index 24.07 01/01/2021 11:13 AM EDT Plan of Treatment Health Maintenance Due Date Last Done Comments HPV Vaccines (1 - Male 3-dos e series) 2016 Men B Vaccine (1 of 2 - Standard) 2017 Influenza Vaccines (#1) 2023 01/02/20, 11/07/2019, 04/22/2015, Additional history exists COVID-19 Vaccine (1 - 2023-2 5 season) 2023 DTaP,Tdap,and Td Vaccines (7 - Td or Tdap) 04/09/2024 04/09/2014, 12/05/2005, 06/06/2003, Additional history exists Hepatitis B Vaccines Completed 09/11/2002, 06/12/2002, 2001 HIB Vaccines Completed 06/06/2003, 11/2002, 04/05/2002, Additional history exists Pneumococcal Vaccine Completed 01/16/2004, 06/12/2002, 04/05/2002, Additional history exists IPV Vaccines Completed 12/05/2005, 11/2002, 04/05/2002, Additional history exists MMR Vaccines Completed 12/05/2005, 01/01/2003 Varicella Vaccines Completed 12/06/2006, 01/01/2003 Hepatitis A Vaccines Completed 04/22/2015, 04/09/19 15 Meningococcal Vaccine Completed 09/26/2018, 015 Insurance [facility] NON PCC [facility] H[facility]
== END 2024-04-23 14:04 | disposition home or self-care (01) ==
PROVIDERS: PCP Nurse Practitioner Family; Visit Provider Nurse Practitioner Family
DX: F41.8 Other specified anxiety disorders (principal)

== ENCOUNTER → 2024-04-23 13:14 | Outpatient (BNVA) | payer BC, MEDICAID, SELFPAY | PROVIDERS: PCP Nurse Practitioner Family; Visit Provider Nurse Practitioner Family | DX: F41.8 Other specified anxiety disorders (principal) | CPT/HCPCS: 96127 ==